=== PATIENT | male | born 1965 | race Caucasian/White ===

== ENCOUNTER 2021-02-21 11:31 | Outpatient (CLI) | payer BC | END 2021-02-21 11:32 | disposition home or self-care (01) | LOC: CSHWCC 11:31 | PROVIDERS: ATTEND Nurse Practitioner Family | DX: T66.XXXD Radiation sickness, unspecified, subsequent encounter (principal); E03.8 Other specified hypothyroidism; I10 Essential (primary) hypertension; M27.2 Inflammatory conditions of jaws; Z85.818 Personal history of malignant neoplasm of other sites of lip, oral cavity, and pharynx | CPT/HCPCS: 99202; G0463 ==

== ENCOUNTER 2021-03-08 09:26 | Outpatient (CLI) | payer BC | END 2021-03-08 09:27 | disposition home or self-care (01) | LOC: CSHWCC 09:26 | PROVIDERS: ATTEND Nurse Practitioner Family | DX: T66.XXXA Radiation sickness, unspecified, initial encounter (principal); M27.2 Inflammatory conditions of jaws; L59.9 Disorder of the skin and subcutaneous tissue related to radiation, unspecified | CPT/HCPCS: G0277 ==

== ENCOUNTER 2021-03-09 09:47 | Outpatient (CLI) | payer BC | END 2021-03-09 09:48 | disposition home or self-care (01) | LOC: CSHWCC 09:47 | PROVIDERS: ATTEND Nurse Practitioner Family | DX: M27.2 Inflammatory conditions of jaws (principal); L59.9 Disorder of the skin and subcutaneous tissue related to radiation, unspecified | CPT/HCPCS: G0277 ==

== ENCOUNTER 2021-03-10 09:35 | Outpatient (CLI) | payer BC | END 2021-03-10 09:36 | disposition home or self-care (01) | LOC: CSHWCC 09:35 | PROVIDERS: ATTEND Nurse Practitioner Family | DX: T66.XXXD Radiation sickness, unspecified, subsequent encounter (principal); E03.8 Other specified hypothyroidism; I10 Essential (primary) hypertension; M27.2 Inflammatory conditions of jaws; Z85.818 Personal history of malignant neoplasm of other sites of lip, oral cavity, and pharynx | CPT/HCPCS: G0277 ==

== ENCOUNTER 2021-03-14 09:49 | Outpatient (CLI) | payer BC | END 2021-03-14 09:50 | disposition home or self-care (01) | LOC: CSHWCC 09:49 | PROVIDERS: ATTEND Nurse Practitioner Family | DX: M27.2 Inflammatory conditions of jaws (principal); L59.9 Disorder of the skin and subcutaneous tissue related to radiation, unspecified | CPT/HCPCS: G0277 ==

== ENCOUNTER 2021-03-15 10:06 | Outpatient (CLI) | payer BC | END 2021-03-15 10:07 | disposition home or self-care (01) | LOC: CSHWCC 10:06 | PROVIDERS: ATTEND Nurse Practitioner Family | DX: M27.2 Inflammatory conditions of jaws (principal); L59.9 Disorder of the skin and subcutaneous tissue related to radiation, unspecified | CPT/HCPCS: G0277 ==

== ENCOUNTER 2021-03-16 08:18 | Outpatient (CLI) | payer BC | END 2021-03-16 08:19 | disposition home or self-care (01) | LOC: CSHWCC 08:18 | PROVIDERS: ATTEND Nurse Practitioner Family | DX: M27.2 Inflammatory conditions of jaws (principal); L59.9 Disorder of the skin and subcutaneous tissue related to radiation, unspecified | CPT/HCPCS: G0277 ==

== ENCOUNTER 2021-03-17 10:04 | Outpatient (CLI) | payer BC | END 2021-03-17 10:05 | disposition home or self-care (01) | LOC: CSHWCC 10:04 | PROVIDERS: ATTEND Nurse Practitioner Family | DX: M27.2 Inflammatory conditions of jaws (principal); L59.9 Disorder of the skin and subcutaneous tissue related to radiation, unspecified | CPT/HCPCS: G0277 ==

== ENCOUNTER 2021-03-22 12:41 | Outpatient (CLI) | payer BC | END 2021-03-22 12:42 | disposition home or self-care (01) | LOC: CSHWCC 12:41 | PROVIDERS: ATTEND Nurse Practitioner Family | DX: M27.2 Inflammatory conditions of jaws (principal); L59.9 Disorder of the skin and subcutaneous tissue related to radiation, unspecified; M87.9 Osteonecrosis, unspecified | CPT/HCPCS: G0277 ==

== ENCOUNTER 2021-03-24 09:36 | Outpatient (CLI) | payer BC | END 2021-03-24 09:37 | disposition home or self-care (01) | LOC: CSHWCC 09:36 | PROVIDERS: ATTEND Nurse Practitioner Family | DX: T66.XXXD Radiation sickness, unspecified, subsequent encounter (principal) ==

== ENCOUNTER 2021-04-20 14:21 | Outpatient (CLI) | payer BC | END 2021-04-20 14:22 | disposition home or self-care (01) | LOC: CSHWCC 14:21 | PROVIDERS: ATTEND Nurse Practitioner Family | DX: M27.2 Inflammatory conditions of jaws (principal); L59.9 Disorder of the skin and subcutaneous tissue related to radiation, unspecified | CPT/HCPCS: G0277 ==

== ENCOUNTER 2021-04-22 08:16 | Outpatient (CLI) | payer BC | END 2021-04-22 08:17 | disposition home or self-care (01) | LOC: CSHWCC 08:16 | PROVIDERS: ATTEND Nurse Practitioner Family | DX: T66.XXXD Radiation sickness, unspecified, subsequent encounter (principal); M27.2 Inflammatory conditions of jaws | CPT/HCPCS: G0277 ==

== ENCOUNTER 2021-04-26 08:45 | Outpatient (CLI) | payer BC | END 2021-04-26 08:46 | disposition home or self-care (01) | LOC: CSHWCC 08:45 | PROVIDERS: ATTEND Nurse Practitioner Family | DX: M27.2 Inflammatory conditions of jaws (principal); L59.9 Disorder of the skin and subcutaneous tissue related to radiation, unspecified | CPT/HCPCS: G0277 ==

== ENCOUNTER 2021-04-27 07:59 | Outpatient (CLI) | payer BC | END 2021-04-27 08:00 | disposition home or self-care (01) | LOC: CSHWCC 07:59 | PROVIDERS: ATTEND Nurse Practitioner Family | DX: T66.XXXD Radiation sickness, unspecified, subsequent encounter (principal); M27.2 Inflammatory conditions of jaws | CPT/HCPCS: G0277 ==

== ENCOUNTER 2021-05-02 08:40 | Outpatient (CLI) | payer BC | END 2021-05-02 08:41 | disposition home or self-care (01) | LOC: CSHWCC 08:40 | PROVIDERS: ATTEND Nurse Practitioner Family | DX: T66.XXXD Radiation sickness, unspecified, subsequent encounter (principal); M27.2 Inflammatory conditions of jaws | CPT/HCPCS: G0277 ==

== ENCOUNTER 2021-05-03 08:24 | Outpatient (CLI) | payer BC | END 2021-05-03 08:25 | disposition home or self-care (01) | LOC: CSHWCC 08:24 | PROVIDERS: ATTEND Nurse Practitioner Family | DX: M27.2 Inflammatory conditions of jaws (principal); L59.9 Disorder of the skin and subcutaneous tissue related to radiation, unspecified | CPT/HCPCS: G0277 ==

== ENCOUNTER 2021-05-05 10:01 | Outpatient (CLI) | payer BC | END 2021-05-05 10:02 | disposition home or self-care (01) | LOC: CSHWCC 10:01 | PROVIDERS: ATTEND Nurse Practitioner Family | DX: T66.XXXD Radiation sickness, unspecified, subsequent encounter (principal); M27.2 Inflammatory conditions of jaws | CPT/HCPCS: G0277 ==

== ENCOUNTER 2021-05-10 09:08 | Outpatient (CLI) | payer BC | END 2021-05-10 09:09 | disposition home or self-care (01) | LOC: CSHWCC 09:08 | PROVIDERS: ATTEND Nurse Practitioner Family | DX: M27.2 Inflammatory conditions of jaws (principal) | CPT/HCPCS: G0277 ==

== ENCOUNTER 2021-05-11 09:07 | Outpatient (CLI) | payer BC | END 2021-05-11 09:08 | disposition home or self-care (01) | LOC: CSHWCC 09:07 | PROVIDERS: ATTEND Nurse Practitioner Family | DX: T66.XXXD Radiation sickness, unspecified, subsequent encounter (principal); M27.2 Inflammatory conditions of jaws | CPT/HCPCS: G0277 ==

== ENCOUNTER 2021-05-12 09:05 | Outpatient (CLI) | payer BC | END 2021-05-12 09:06 | disposition home or self-care (01) | LOC: CSHWCC 09:05 | PROVIDERS: ATTEND Nurse Practitioner Family | DX: M27.2 Inflammatory conditions of jaws (principal) | CPT/HCPCS: G0277 ==

== ENCOUNTER 2021-05-13 08:24 | Outpatient (CLI) | payer BC | END 2021-05-13 08:25 | disposition home or self-care (01) | LOC: CSHWCC 08:24 | PROVIDERS: ATTEND Nurse Practitioner Family | DX: M27.2 Inflammatory conditions of jaws (principal); L59.9 Disorder of the skin and subcutaneous tissue related to radiation, unspecified | CPT/HCPCS: G0277 ==